=== PATIENT | female | born 1960 | race Two or more races ===

== ENCOUNTER 2019-01-11 11:08 | Outpatient (CLI) | payer OTHER | END 2019-01-11 11:25 | disposition home or self-care (01) | LOC: OFIC 805 11:08 | DX: H61.21 Impacted cerumen, right ear (principal); R06.83 Snoring; R09.82 Postnasal drip ==

== ENCOUNTER 2019-04-09 12:46 | Outpatient (CLI) | payer OTHER ==
[~2019-04-09] VITALS: Ht 152.4 cm; Wt 59.9 kg
== END 2019-04-09 13:05 | disposition home or self-care (01) ==
LOC: OFIC 805 12:46
DX: R06.83 Snoring (principal); R09.82 Postnasal drip

== ENCOUNTER 2021-08-06 09:40 | Outpatient (CLI) | payer OTHER | END 2021-08-06 09:44 | disposition home or self-care (01) | LOC: RX STUDY 09:40 | PROVIDERS: ATTEND Internal Medicine | DX: K63.89 Other specified diseases of intestine (principal); C17.8 Malignant neoplasm of overlapping sites of small intestine; D37.2 Neoplasm of uncertain behavior of small intestine ==